=== PATIENT | male | born 1965 | race Caucasian/White ===

== ENCOUNTER 2023-01-17 04:58 | Observation (INO) ==
--- NOTE | 2023-01-03 08:45 | Anesthesiology Consultation ---
Date of Service January 03, 2023 Assessment & Plan (1) Encounter for pre-operative examination: - COVID screening: Per assessment on 01/03: No known COVID-19 positive contacts or current COVID-19 related symptoms. Travel screen negative. Patient has congestion x 2 days. Covid test done at [facility] 01/03/23 came back negative. Patient to contact PAT/surgeon is symptoms not resolved prior to surgery. - Outpatient joint assessment: Pt currently scheduled for inpatient pathway. If surgeon requests review for outpatient joint pathway, patient is an acceptable candidate for outpatient joint program from anesthesia standpoint pending surgeon's office assessment that patient is motivated, has good support and completes Same Day Joint Program preop requirements. Chart Review Chart Review: Acceptable Risk for Surgery and Patient seen in Pre Admission Testing Teaching & Discussion Pre-Anesthesia Teaching/Discussion Notes: Instructed NPO after midnight before surgery,except medications with 15 cc of water. Medication instructions provided according to the [facility] guidelines. History Surgery Operation Date: 01/17/23 08:50 Proposed Procedures p Right Total Hip Arthroplasty - Otilio Alba MD Height/Weight Height: 5 ft 11 in Weight: 103.3 kg Allergies Allergy/AdvReac Type Severity Reaction Status Date / Time Penicillins Allergy Severe severe Verified 01/03/23 08:14 throat swelling Medications Home Medications Medication Instructions Recorded Confirmed Last Taken albuterol sulfate 90 mcg/actuation 2 puff inhalation Q6H PRN 01/03/23 01/03/23 Unknown aerosol inhaler Shortness Of Breath amlodipine 5 mg tablet 5 mg PO QAM 01/03/23 01/03/23 Unknown cyclobenzaprine 10 mg tablet 10 mg PO TID 01/03/23 01/03/23 Unknown diclofenac epolamine 1.3 % 1 patch topical Q12H 01/03/23 01/03/23 Unknown transdermal 12 hour patch duloxetine 60 mg capsule,delayed 60 mg PO DAILY 01/03/23 01/03/23 Unknown release famotidine 20 mg tablet 20 mg PO HS PRN Acid Reflux 01/03/23 01/03/23 Unknown fenofibrate 160 mg tablet 160 mg PO QAM 01/03/23 01/03/23 Unknown gabapentin 600 mg tablet 600 mg PO TID 01/03/23 01/03/23 Unknown hydrocodone 10 mg-acetaminophen 1 tab PO Q6H PRN Pain 01/03/23 01/03/23 Unknown 325 mg tablet icosapent ethyl 1 gram capsule 2 g PO BID 01/03/23 01/03/23 Unknown (Vascepa) linaclotide 145 mcg capsule 145 mcg PO QAM 01/03/23 01/03/23 Unknown (Linzess) meclizine 25 mg tablet 25 mg PO Q8 PRN Dizziness 01/03/23 01/03/23 Unknown metoprolol succinate 50 mg 50 mg PO DAILY 01/03/23 01/03/23 Unknown tablet,extended release 24 hr morphine 60 mg tablet,extended 60 mg PO Q12H 01/03/23 01/03/23 Unknown release (MS Contin) naloxone 0.4 mg/mL injection 0.4 mg intranasal UD PRN overdose 01/03/23 01/03/23 Unknown solution omeprazole 40 mg capsule,delayed 40 mg PO QAM 01/03/23 01/03/23 Unknown release polyethylene glycol 3350 17 gram 17 g PO DAILY 01/03/23 01/03/23 Unknown oral powder packet (Miralax) potassium chloride 10 mEq 10 meq PO QAM 01/03/23 01/03/23 Unknown tablet,extended release prednisone 20 mg tablet 20 mg PO UD 01/03/23 01/03/23 Unknown promethazine 25 mg tablet 25 mg PO Q6H PRN Nausea 01/03/23 01/03/23 Unknown ropinirole 2 mg tablet 4 mg PO HS 01/03/23 01/03/23 Unknown rosuvastatin 10 mg tablet 10 mg PO HS 01/03/23 01/03/23 Unknown testosterone cypionate 200 mg/mL 200 mg subcut UD 01/03/23 01/03/23 Unknown intramuscular kit valacyclovir 1 gram tablet 2,000 mg PO BID PRN Cold Sores 01/03/23 01/03/23 Unknown Past Medical History Medical History Chronic back pain Depression Generalized headaches Hearing deficit Hyperlipidemia Hypertension Left knee DJD Osteoarthritis Exercise / Class Metabolic Activity II 4-5 Yardwork/Stairs/Walk up hill (one FS (no CP, no SOB)) Past Family History Family History Other No family history of adverse response to anesthesia Past Surgical History Surgical History History of anesthesia reaction Awareness with 1990 lumbar surgery History of arthroscopy of right knee x2 History of colonoscopy History of eye surgery "eye socket repair" 2012 History of hernia surgery at 10 months old History of lumbar surgery 1990, 1992 (denies hardware) History of shoulder surgery left History of tooth extraction History of total left hip replacement History of total right knee replacement (TKR) Past Anesthesia History No Family Hx of Anesthesia Complications and Other (Awareness with 1990 with lumbar surgery) History of PONV No Hx of PONV and Hx of Motion Sickness Social History Smoking Status: Never smoker Do You Dip or Chew Tobacco: Yes (Advised none DOS) Hx Alcohol Use: No Hx Substance Use: Yes substance use type: marijuana Review of Systems Patient denies chest pain, shortness of breath, dyspnea on exertion, fever, chills, cough, wheezing, palpitations. Physical Exam Vital Signs VITALS BP 147/75 P 68 TEMP 98.2 SP02 96%RA RESP 16 PHYSICAL Full cervical extension range of motion. Full TMJ range of motion. TMD 4 finger breaths Mallampati Score 2 Dentition: upper partial Lungs: clear throughout to auscultation Cardiac: regular rate and rhythm, distant heart sounds Spine: normal Carotid arteries: negative bruit Extremities: no LE edema Thin gaviria Lab Results Anesthesia Preop Results Results Anesthesia Widget: WBC 7.41 K/ul (4.8-10.8) 01/03/23 Hgb 13.0 g/dl (14.0-18.0) L 01/03/23 Hct 38.4 % (42.0-52.0) L 01/03/23 Plt 288 K/uL (130-400) 01/03/23 Na 139 mmol/L (136-145) 01/03/23 K 3.7 mmol/L (3.5-5.1) 01/03/23 Cl 103 mmol/L (98-107) 01/03/23 CO2 32 mmol/L (21-32) 01/03/23 BUN 14 mg/dl (6-23) 01/03/23 Creat 0.89 mg/dl (0.6-1.4) 01/03/23 Glucose Level 90 mg/dl (70-99(Fasting)) 01/03/23 PT 10.8 Seconds (9.0-12.0) 01/03/23 PTT 28.1 Seconds (21.0-31.0) 01/03/23 INR 1.0 (0.9-1.1) 01/03/23 COVID-19 PCR NEGATIVE (Negative) 01/03/23 Blood Type B Positive 01/03/23 Antibody Screen NEGATIVE 01/03/23 Testing Electrocardiogram Date: 01/03/23 SB with first degree AVB at 59bpm. Otherwise normal ECG. Chest X-Ray Date: 01/03/23 Findings: + NAD
--- NOTE | 2023-01-10 18:21 | History & Physical Report ---
Date of Service January 10, 2023 Assessment & Plan (1) Hip arthritis: 67-year-old gentleman with a history of right knee replacement left hip replacement in the past along with significant narcotic use with advanced right hip arthritis. He is got some moderate left knee DJD. At the right hip is clearly the most severe problem. He failed conservative measures and would like to have his hip replaced. : Proceed with a right total hip replacement. We discussed narcotic use and he really needs to limit this is much as possible. By himself and said he managed this last time. We will plan on keeping him in the office total overnight and then discharged hopefully postop day 1. There is cemented with total hip replacement explained the patient could be not limited to DVT PE infection neurological and vascular bleeding palm pain limb range of motion if this fairly of symptoms incomplete relief of symptoms fracture or dislocation. We will do the best we can to recreate his offset and make his leg lengths equal. As far as DVT prophylaxis we will plan on adding teds SCDs and aspirin twice a day. (2) Left knee DJD: History of Present Illness Chief Complaint: . Right hip pain. Primary Care Provider: Umer Mercado M.D. . Patient is a 57-year-old gentleman from walking referral by Dr. Duarte for treatment of his hip primarily. So long history of gradual increasing right hip pain discomfort localized to the groin area. He has been through extensive conservative management and now presents for surgical treatment. He does have a history of right knee replacement done 15 years ago and a left hip replacement done [address] Humphreys in [place]. Not sure why but he said not happy with something awaiting support. The hip pain has become more disabling. He describes groin pain. Increased activities. He has difficulty putting his shoes and socks on. Limps more today.. He like to have his hip fixed. Of note, he also has some knee arthritis. As long as he takes intermittent prednisone seems to manage that okay. Also discussed some chronic back problems. Allergies Allergy/AdvReac Type Severity Reaction Status Date / Time Penicillins Allergy Severe severe Verified 01/03/23 08:14 throat swelling Home Medications Medication Instructions Recorded Confirmed Type albuterol sulfate 90 mcg/actuation 2 puff inhalation Q6H PRN 01/03/23 01/03/23 History aerosol inhaler Shortness Of Breath amlodipine 5 mg tablet 5 mg PO QAM 01/03/23 01/03/23 History cyclobenzaprine 10 mg tablet 10 mg PO TID 01/03/23 01/03/23 History diclofenac epolamine 1.3 % 1 patch topical Q12H 01/03/23 01/03/23 History transdermal 12 hour patch duloxetine 60 mg capsule,delayed 60 mg PO DAILY 01/03/23 01/03/23 History release famotidine 20 mg tablet 20 mg PO HS PRN Acid Reflux 01/03/23 01/03/23 History fenofibrate 160 mg tablet 160 mg PO QAM 01/03/23 01/03/23 History gabapentin 600 mg tablet 600 mg PO TID 01/03/23 01/03/23 History hydrocodone 10 mg-acetaminophen 1 tab PO Q6H PRN Pain 01/03/23 01/03/23 History 325 mg tablet icosapent ethyl 1 gram capsule 2 g PO BID 01/03/23 01/03/23 History (Vascepa) linaclotide 145 mcg capsule 145 mcg PO QAM 01/03/23 01/03/23 History (Linzess) meclizine 25 mg tablet 25 mg PO Q8 PRN Dizziness 01/03/23 01/03/23 History metoprolol succinate 50 mg 50 mg PO DAILY 01/03/23 01/03/23 History tablet,extended release 24 hr morphine 60 mg tablet,extended 60 mg PO Q12H 01/03/23 01/03/23 History release (MS Contin) naloxone 0.4 mg/mL injection 0.4 mg intranasal UD PRN overdose 01/03/23 01/03/23 History solution omeprazole 40 mg capsule,delayed 40 mg PO QAM 01/03/23 01/03/23 History release polyethylene glycol 3350 17 gram 17 g PO DAILY 01/03/23 01/03/23 History oral powder packet (Miralax) potassium chloride 10 mEq 10 meq PO QAM 01/03/23 01/03/23 History tablet,extended release prednisone 20 mg tablet 20 mg PO UD 01/03/23 01/03/23 History promethazine 25 mg tablet 25 mg PO Q6H PRN Nausea 01/03/23 01/03/23 History ropinirole 2 mg tablet 4 mg PO HS 01/03/23 01/03/23 History rosuvastatin 10 mg tablet 10 mg PO HS 01/03/23 01/03/23 History testosterone cypionate 200 mg/mL 200 mg subcut UD 01/03/23 01/03/23 History intramuscular kit valacyclovir 1 gram tablet 2,000 mg PO BID PRN Cold Sores 01/03/23 01/03/23 History Past Med/Surg History Medical History Chronic back pain Depression Generalized headaches Hearing deficit Hyperlipidemia Hypertension Left knee DJD Osteoarthritis Surgical History History of anesthesia reaction Awareness with 1990 lumbar surgery History of arthroscopy of right knee x2 History of colonoscopy History of eye surgery "eye socket repair" 2012 History of hernia surgery at 10 months old History of lumbar surgery 1990, 1992 (denies hardware) History of shoulder surgery left History of tooth extraction History of total left hip replacement History of total right knee replacement (TKR) Family History Other No family history of adverse response to anesthesia Social History Smoking Status: Never smoker Second Hand Exposure: No; Do You Dip or Chew Tobacco: Yes (Advised none DOS); Hx Alcohol Use: No Hx Substance Use: Yes Last Used Substance: Days (ago) Last Used Substance Other:: used yesterday 01/02/23 Preferred Language: Albanian Communication Ability: Effective 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 Physical Exam . Physical examination right hip reveal patient walks a little bit of a limp. Leg lengths appear pretty equal. Got a lot of stiffness and limitation of hip motion. Internally rotates to about neutral at best. Negative straight leg r aise. Neurologically intact. Constitutional WD/WN, vitals as above ENMT external ear and nose normal, oropharynx normal Neck trachea midline, no thyromegaly Respiratory normal respiratory effort, lungs clear to auscultation Cardiovascular RRR, no murmur, no edema Gastrointestinal (Abdomen) normal bowel sounds, soft, nontender, no hepatosplenomegaly Results & Data Results & Data Laboratory Results . Diagnostic Findings . X-rays of the right hip were reviewed. Shows advanced right hip DJD. Complete loss of superior joint space. Slight cam plate type impingement. Very large medial osteophyte. Significant offset to the femur itself. The left hip replaced looks pretty good position without problems. X-rays of the left knee reveal some moderate medial compartment arthritis but he is got some chondrocalcinosis. The right knee replaced looks to be in good position. Good undersurface patella. PG Care Time/CCT Total # of Minutes Spent Total Time Spent with Patient: Total time spent is greater than 50% in coordination of care (as documented) at patient's floor/unit and/or counseling patient: Coding Level of Care Code None Diagnoses Hip arthritis M16.10 Left knee DJD M17.12
[2023-01-17] MEDS ORDERED: ceFAZolin 2000MG 2,000 MG/15 ML SYR IV SCH (06:00)
[2023-01-17] MEDS ORDERED: TRANEXAMIC ACID 1,000 MG **IV Pre-op IV SCH (06:00)
[2023-01-17] MEDS ORDERED: METOCLOPRAMIDE HCL 10 MG TABLET PO SCH (06:00)
[2023-01-17] MEDS ORDERED: LR 60ML/HR IV SCH (06:00)
[2023-01-17] MEDS ORDERED: ACETAMINOPHEN 500 MG TAB PO SCH (06:00)
[2023-01-17] MEDS ORDERED: BUPIVACAINE LIPOSOME/PF 266 MG, BUPIVACAINE/EPINEPHRINE 50 ML, SODIUM CHLORIDE 0.9% PF ... INFIL SCH (06:00)
[2023-01-17] MEDS ORDERED: dexAMETHasone**PF** 10 MG/ML VIAL IV SCH (06:00)
[2023-01-17] MEDS ORDERED: CeleBREX 200 MG CAP PO SCH (06:00)
[2023-01-17] MEDS ORDERED: Scopolamine 1 MG TDSY TD SCH (06:00)
[2023-01-17] MEDS ORDERED: FAMOTIDINE 20 MG TAB PO SCH (06:00)
[2023-01-17] MEDS ORDERED: LR 500ML BOLUS, THEN 15ML/HR IV SCH (06:00)
[2023-01-17] MEDS ORDERED: BUPIVACAINE 0.5 % 5 MG/1 ML PF 10ML VIAL ONE (06:18)
[2023-01-17] MEDS ORDERED: ONDANSETRON INJ 2 MG/ML 2 ML VIAL ONE (06:38)
[2023-01-17] MEDS ORDERED: PROPOFOL IV EMULSION 10 MG/ML 20 ML VIAL IV ONE ×3 (06:38→06:41)
[2023-01-17] MEDS ORDERED: DEXAMETHASONE SOD INJ 4 MG/ML VIAL ONE (06:38)
[2023-01-17] MEDS ORDERED: MIDAZOLAM HCL 1 MG/ML 2ML VIAL ONE (06:38)
[2023-01-17] MEDS ORDERED: fentaNYL citrate PF 100 MCG/2 ML VIAL ONE (06:38)
[2023-01-17] MEDS ORDERED: LIDOCAINE 2% 2 ML VIAL/AMP(20MG/ML) INFIL ONE (06:38)
[2023-01-17] MEDS ORDERED: MoRPHine SULFATE PF 1 MG/ML 10 ML AMP/VIAL ONE (06:43)
[2023-01-17] MEDS ORDERED: BUPIVACAINE/EPINEPHRINE 0.5% MPF 1:200,000 30 ML VIAL ONE (06:45)
[2023-01-17] MEDS ORDERED: ceFAZolin 2,000 MG/15 ML IV PUSH IV ONE (06:51)
--- NOTE | 2023-01-17 06:58 | History & Physical Bridge Note ---
Date of Service January 17, 2023 History & Physical Bridge Note I have examined the patient, reviewed the History & Physical and in the interval since the performance of the History & Physical I have noted the following changes of clinical significance: no changes noted
[2023-01-17] MEDS ORDERED: Nursing to Pharmacy Communication SCH (07:00)
[2023-01-17] MEDS ORDERED: GLYCOPYRROLATE 0.2 MG/ML VIAL ONE (07:15)
[2023-01-17] MEDS ORDERED: KETAMINE 50 MG/5 ML SYRINGE ONE (07:15)
[2023-01-17] MEDS ORDERED: ePHEDrine sulfate 50 MG/ML SYR ONE (07:18)
[2023-01-17] MEDS ORDERED: PHENYLEPHRINE 100MCG/ML 5ML SYR ONE (07:25)
[2023-01-17] MEDS ORDERED: PHENYLEPHRINE HCL 10 MG/ML VIAL ONE (07:37)
[2023-01-17] MEDS ORDERED: NALOXONE HCL 0.08 MG in SYRINGE 1.8 ML IV PRN (08:04)
[2023-01-17] MEDS ORDERED: ePHEDrine sulfate 50 MG/ML AMP IV PRN (08:04)
[2023-01-17] MEDS ORDERED: diphenhydrAMINE 50 MG/ML VIAL IV PRN (08:04)
[2023-01-17] MEDS ORDERED: NALOXONE HCL 0.4 MG/1 ML VIAL/CARP IV PRN ×2 (08:04→10:07)
[2023-01-17] MEDS ORDERED: LACTATED RINGER'S 500 ML IV PRN (08:04)
[2023-01-17] MEDS ORDERED: NALBUPHINE HCL INJ 10 MG/ML AMP IV PRN (08:04)
[2023-01-17] MEDS ORDERED: MoRPHine SULFATE PF 1 MG/ML 10 ML AMP/VIAL INT SPINAL ONE (08:04)
[2023-01-17] MEDS ORDERED: NALOXONE HCL 1 MG in SODIUM CHLORIDE 0.9% 1000ML 1,000 ML IV PRN (08:04)
[2023-01-17] MEDS ORDERED: NO NARCOTICS OR SEDATIVES SCH (08:15)
[2023-01-17] MEDS ORDERED: DC INTRASPINAL MORPHINE SCH (08:15)
[2023-01-17] MEDS ORDERED: SODIUM CHLORIDE 0.9% 1000ML 1,000 ML IV SCH (08:15)
--- NOTE | 2023-01-17 08:48 | Operative Report ---
PG Post Operative Report Pre & Post Diagnosis Operation Date: 01/17/23 07:00 Pre-Op Diagnosis: Right Hip Degenerative Joint Disease Post-Op Diagnosis: Right Hip Degenerative Joint Disease I identified the patient and participated in the time-out.: Yes Procedure Operation Date: 01/17/23 07:00 Actual Procedures p Right Total Hip Arthroplasty(Right) - Otilio Alba MD Surgeon Otilio Alba MD Patients Transporter Julius Keys PA-C Estimated Blood Loss 100 Findings Consistent with Post-Op Diagnosis Operative findings were advanced right hip DJD. Extensive grade 4 [id number] disease of the femoral head and acetabulum. He had eburnation of most of the femoral head as well as the acetabulum. Pretty significant osteophytes around the femoral neck as well as anterior and inferior acetabulum. Specimens Right femoral head sent for pathology Anesthesia Type Spinal MAC Complications none Disposition Accompanied Patient To Recovery: No Indications Patient is a 57-year-old gentleman with a host of orthopedic issues in the past and orthopedic operations. Over the past several years she developed increased pain discomfort in his right hip. He failed conservative measures. X-rays show advanced hip arthritis. He elected to proceed with total hip arthroplasty. Description of Procedure Operative implants consist of: 1 Biomet G7 size 56 mm acetabular shell. 2. 6.5 cancellous acetabular screws 135 mm in length and 125 mm length. 3. [place] hole eliminator. 4. Highly cross-linked polyethylene liner with 56 mm outer diameter 36 mm diameter and a hansen placed inferior posterior. 5. DePuy Karaya size 11 KLA femoral stem. 6. +8.5/36 mm ceramic articular ball. The patient was taken to the operating, identified, placed on the operating table supine position architectures were properly padded. IV antibiotics arrived by anesthesia team. A spinal anesthetic had been implemented holding area. Patient was then placed in the left lateral decubitus position. Axillary roll was placed. A Stulberg hip positioner was used for positioning. Right hip and leg were then prepped and draped in usual sterile fashion. A posterolateral approach to the right hip was then performed through a curvilinear incision centered over the greater trochanter. Sharp dissection Through subcutaneous tissue down to the IT band gluteal fascia. The IT band gluteal fascia incised longitudinally in line with skin incision. The underlying greater bursa was excised. Piriformis and external rotators along with the hip joint capsule were released from the posterior aspect hip as a single layer. Great care was taken throughout the procedure protect the sciatic nerve at all times. The hip was internally rotated and dislocated. A femoral neck osteotomy cut was made with Final Cut about 17 mm above the lesser trochanter. Femoral head was removed and sent for pathology. The femur was retracted anteriorly. Attention drawn the acetabulum. The acetabular labrum was excised. The medial osteophyte was excised. Sequential reaming the acetabular was then performed again with a size 45 and progressing up to 55. I did ream a little with a 56 reamer and then placed a 56 mm Biomet G7 acetabular shell in about 20 degrees of anteversion and 40 degrees lateral opening. Fixed with two 6.5 cancellous acetabular screws. Some anterior and inferior osteophytes removed. Trial liner was placed. Attention drawn the femur. The proximal femur was entered with a [employer] cutter followed by canal finder. Then broached beginning size 8 and progressed up to 11. Got excellent fit 11. He had a very good cancellous bone envelope. We trialed the hip and the hip was fully stable but still a bit loose and lax with a +5 head. I felt his leg lengths are still a little bit short so we used a +8.5 head. Was fully stable full extension and external rotation and flexion to 90 degrees and internal Tatian to 50+ degrees. I like to place his implants. All trial implants were removed. [place] eliminator was placed. Highly cross- linked polyethylene liner with a hansen placed inferior posterior was placed. I uses head for concerns of this patient's compliance. A DePuy size 11 KLA femoral stem was impacted in position. A +8.5/36 mm ceramic articular ball was placed. Hip was located once again found to be stable. Attention drawn toward closing. Wounds irrigated cosigns pulsatile lavage solution. I did inject locally with 60 cc of half percent Marcaine with epinephrine. The posterior capsule and external rotators were then repaired through drill holes in the posterior trochanter as a single layer with #2 Tycron suture. Then closed in 2 layers with deep layer #1 Vicryl suture in the subcutaneous tissues with 2-0 Dexon suture in a buried interrupted fashion the skin was closed skin lidia. Leg was then cleaned and dried and sterile dressed with Xeroform, 4 x 4's, ABD pad and foam tape was applied. Patient then transferred to the recovery room in stable condition. Patient tolerated procedure well and there were no complications. Julius Keys, my physician post production assistant, was present for the entire procedure. His assistance was essential and required for appropriate patient positioning, prepping and draping, surgical exposure, performing the technical details of the operation, placement the implants, closure of the wound, and placement of the sterile bandage. I attest to the content of the Intraoperative Record and any orders documented therein. Any exceptions are noted below.
--- NOTE | 2023-01-17 09:12 | XRay Report ---
XR hip 1V RT w pelvis HISTORY: 57 years-old Male IN PACU - Post Surgical right hip arthroplasty COMPARISON: 10/11/2022 TECHNIQUE: AP view of the pelvis with crosstable lateral view of the right hip FINDINGS: Unremarkable appearance of the left hip arthroplasty. Right hip arthroplasty demonstrates satisfactor y alignment. Lateral skin lidia with expected postoperative soft tissue swelling and deep tissue ai r. No acute fracture, dislocation or unexpected opaque foreign body. IMPRESSION: Right hip arthroplasty with expected postoperative changes. ACT 112: Negative or not required by law. The above report was generated using voice recognition software. It may contain grammatical, syntax o r spelling errors. Electronically signed by: Naveed Meredith M.D. 01/17/2023 9:11 AM
--- NOTE | 2023-01-17 09:36 | Anesthesiology Progress Note ---
Date of Service January 17, 2023 Anesthesia Post Procedure Vital Signs Vital Signs: Temp Pulse Pulse Resp BP Pulse Ox O2 Del Method 01/17/23 09:30 37.1 C 78 20 136/65 97 Room Air 01/17/23 09:05 82 22 152/77 H 98 Oxymask 01/17/23 08:55 82 19 144/82 H 96 Oxymask 01/17/23 09:15 76 24 140/92 95 Oxymask 01/17/23 08:45 81 19 135/70 100 Oxymask 01/17/23 08:37 36.9 C 64 16 110/59 L 92 Oxymask 01/17/23 05:37 36.9 C 72 20 131/87 95 Room Air O2 Flow Rate 01/17/23 09:30 0 01/17/23 09:05 3 01/17/23 08:55 5 01/17/23 09:15 3 01/17/23 08:45 5 01/17/23 08:37 7 01/17/23 05:37 Pain Intensity Right Hip: Pain Intensity: 0 Notes Mental Status: alert / awake / arousable Patient Amnestic to Procedure: Yes Nausea / Vomiting: adequately controlled Pain: adequately controlled Airway Patency, RR, SpO2: stable & adequate BP & HR: stable & adequate Hydration State: stable & adequate Neuraxial Anesthesia: was administered and sensory block is resolving Anesthetic Complications: no major complications apparent
[2023-01-17] MEDS ORDERED: diphenhydrAMINE Capsule 25 MG CAP PO PRN (10:07)
[2023-01-17] MEDS ORDERED: METOCLOPRAMIDE HCL INJ 5 MG/ML 2 ML VIAL IV PRN (10:07)
[2023-01-17] MEDS ORDERED: HYDROmorphone INJ 0.5 MG/0.5 ML SYR IV PRN (10:07)
[2023-01-17] MEDS ORDERED: MAGNESIUM HYDROXIDE SUSP 30 ML UDC PO PRN (10:07)
[2023-01-17] MEDS ORDERED: TAMSULOSIN HCL 0.4 MG CAP PO PRN (10:07)
[2023-01-17] MEDS ORDERED: TESTOSTERONE CYPIONATE 200 MG/ML SQ SCH (10:07)
[2023-01-17] MEDS ORDERED: ONDANSETRON INJ 2 MG/ML 2 ML VIAL IV PRN (10:07)
[2023-01-17] MEDS ORDERED: MECLIZINE HCL 25 MG TAB PO PRN (10:07)
[2023-01-17] MEDS ORDERED: ALBUTEROL HFA 8 GM INHALER INH PRN (10:07)
[2023-01-17] MEDS ORDERED: PROMETHAZINE HCL 25 MG TAB PO PRN (10:07)
[2023-01-17] MEDS ORDERED: bisacodyL 10 MG SUPP PR PRN (10:07)
[2023-01-17] MEDS ORDERED: FAMOTIDINE 20 MG TAB PO PRN (10:07)
[2023-01-17] MEDS ORDERED: ALUMINUM/MAGNESIUM SUSP 30 ML UDC PO PRN (10:07)
[2023-01-17] MEDS: SODIUM CHLORIDE 0.9% 1000ML 1,000 ML IV SCH ×2 (10:27→20:17)
[2023-01-17] MEDS: MoRPHine SULFATE CR 60 MG TABCR PO SCH ×2 (11:07→22:35)
[2023-01-17] MEDS: SENNA 8.6 MG TAB PO SCH ×2 (11:07→20:08)
[2023-01-17] MEDS: MULTIVITAMIN TAB PO SCH (11:08)
[2023-01-17] MEDS: DOCUSATE SODIUM 100 MG CAP PO SCH ×2 (11:08→20:06)
[2023-01-17] MEDS: POLYETHYLENE (MIRALAX) 17 GM PACK PO SCH (11:09)
[2023-01-17] MEDS: POTASSIUM CHLORIDE 10 MEQ TABCR PO SCH (11:09)
[2023-01-17] MEDS: KETOROLAC 30 MG/ML VIAL IV SCH ×2 (11:09→17:45)
[2023-01-17] MEDS: PANTOprazole 40 MG TAB PO SCH (11:09)
[2023-01-17] MEDS: ASPIRIN 81 MG ECTAB PO SCH ×2 (11:09→20:05)
[2023-01-17] MEDS: METOPROLOL SUCC 50MG EXT REL TAB PO SCH (11:10)
[2023-01-17] MEDS: LINACLOTIDE 145 MCG CAPSULE PO SCH (11:10)
[2023-01-17] MEDS: DULoxetine HCL 60 MG CAP PO SCH (11:14)
[2023-01-17] MEDS: amLODIPine BESYLATE 5 MG TAB PO SCH (11:16)
[2023-01-17] MEDS: GABAPENTIN 600 MG TAB PO SCH ×2 (13:37→20:06)
[2023-01-17] MEDS: ACETAMINOPHEN 500 MG TAB PO SCH ×2 (13:38→22:34)
[2023-01-17] MEDS: CYCLOBENZAPRINE HCL 10 MG TAB PO SCH ×2 (13:38→20:05)
[2023-01-17] MEDS ORDERED: TRANEXAMIC ACID / 0.7% NACL 1,000 MG/100 ML BAG IV SCH (15:00)
[2023-01-17] MEDS: predniSONE 20 MG TAB PO SCH ×2 (15:58→20:07)
[2023-01-17] MEDS: ceFAZolin 2000MG 2,000 MG/15 ML SYR IV SCH ×2 (15:59→22:36)
[2023-01-17] MEDS: Scopolamine CHECK PATCH PLACEMENT SCH (15:59)
[2023-01-17] MEDS: ASCORBIC ACID 500 MG TAB PO SCH (16:00)
[2023-01-17] MEDS: OMEGA-3 (PURIFIED FISH OIL) 1 GM CAP PO SCH (20:06)
[2023-01-17] MEDS: oxyCODONE HCL IR 5 MG TAB (IMMEDIATE RELEASE) PO PRN (20:09)
[2023-01-17] MEDS ORDERED: rOPINIRole HCL 2 MG TABLET PO SCH (21:00)
[2023-01-17] MEDS ORDERED: SENNA 8.6 MG TAB PO SCH (21:00)
[2023-01-17] MEDS ORDERED: ROSUVASTATIN CALCIUM 10 MG TAB PO SCH (21:00)
[2023-01-18] MEDS: KETOROLAC 30 MG/ML VIAL IV SCH ×2 (00:04→06:08)
[2023-01-18] MEDS: Scopolamine CHECK PATCH PLACEMENT SCH ×2 (00:04→08:12)
[2023-01-18] MEDS: oxyCODONE HCL IR 5 MG TAB (IMMEDIATE RELEASE) PO PRN ×2 (00:10→06:00)
[2023-01-18 06:04] LABS: Basophils # (auto) 0.01 K/uL (0-0.2); Basophils % (auto) 0.1 %; Hematocrit (blood only) 33.5 % (42.0-52.0); Hemoglobin 11.3 g/dl (14.0-18.0); Immature Granulocytes # (auto) 0.08 K/uL (0.01-0.20); Immature Granulocytes % (auto) 0.5 %; Lymphocytes # (auto) 0.92 K/uL (1.2-3.4); Lymphocytes % (auto) 6.2 %; Mean Corpuscular Hemoglobin 28.4 pg (25.0-34.0); Mean Corpuscular Hgb Conc 33.7 g/dL (32.0-36.0); Mean Corpuscular Volume 84.2 fL (80.0-100.0); Mean Platelet Volume 10.7 fL (9.4-12.4); Monocytes # (auto) 0.94 K/uL (0.11-0.59); Monocytes % (auto) 6.3 %; Neutrophils # (auto) 12.99 K/uL (1.40-6.50); Neutrophils % (auto) 86.9 %; Platelet Count 235 K/uL (130-400); RDW Coefficient of Variation 13.2 % (11.5-14.5); Red Blood Count 3.98 M/uL (4.70-6.10); White Blood Count 14.94 K/ul (4.8-10.8)
[2023-01-18] MEDS: ACETAMINOPHEN 500 MG TAB PO SCH (06:05)
[2023-01-18 06:29] LABS: BUN Creatinine Ratio 19.3 (10-20); Creatinine Clr Calc Pharmacy 112.8 ml/min; Est GFR (African American) 111.3 ml/min; Potassium 4.3 mmol/L (3.5-5.1)
--- NOTE | 2023-01-18 07:54 | Orthopedic Progress Note ---
Date of Service January 18, 2023 Assessment & Plan (1) Status post right hip replacement: 57-year-old gentleman postop day 1 from right hip replacement doing pretty well. Pain is controlled. Hip is located. He is neurologically intact. Plan: 1. DVT prophylaxis glucide teds SCDs, aspirin twice a day. 2. PT OT. Weight-bear as tolerated. Right total hip precautions. Weight-bear as tolerated. 3. Pain control doing okay with current pain regimen. 4. Disposition. Plan to discharge to home with self-care evaluated today. He is refusing home health. Subjective . 57-year-old gentleman postop day 1 from a right total hip placement. He is doing pretty well. He does have history of chronic pain and says it is nothing real new today. No chest pain or shortness of breath. He is hoping to go home. Review of Systems All systems reviewed & are unremarkable except as noted in HPI & below. Physical Exam . Physical exam shows a pleasant middle-age male. He is lying in bed looks comfortable this morning. Examination of the right hip reveals the leg to be well aligned. Dressing is clean dry and intact. Thigh is soft and supple. He is neurologically intact. Respiratory normal respiratory effort, lungs clear to auscultation Cardiovascular RRR, no murmur, no edema Gastrointestinal (Abdomen) normal bowel sounds, soft, nontender, no hepatosplenomegaly Results & Data Results & Data Laboratory Results . Hemoglobin is 11.3. Hematocrit 33.5. Electrolytes are stable Diagnostic Findings . PG Care Time/CCT Total # of Minutes Spent Total Time Spent with Patient: Total time spent is greater than 50% in coordination of care (as documented) at patient's floor/unit and/or counseling patient: Coding Level of Care Code 71654 Post Operative Follow-Up Diagnoses Status post right hip replacement Z96.641
[2023-01-18] MEDS ORDERED: dexAMETHasone 10 MG in SYRINGE 0 ML IV SCH (08:00)
[2023-01-18] MEDS: POTASSIUM CHLORIDE 10 MEQ TABCR PO SCH (08:04)
[2023-01-18] MEDS: PANTOprazole 40 MG TAB PO SCH (08:04)
[2023-01-18] MEDS: MULTIVITAMIN TAB PO SCH (08:04)
[2023-01-18] MEDS: METOPROLOL SUCC 50MG EXT REL TAB PO SCH (08:07)
[2023-01-18] MEDS: LINACLOTIDE 145 MCG CAPSULE PO SCH (08:07)
[2023-01-18] MEDS: amLODIPine BESYLATE 5 MG TAB PO SCH (08:07)
[2023-01-18] MEDS: SENNA 8.6 MG TAB PO SCH (08:08)
[2023-01-18] MEDS: DULoxetine HCL 60 MG CAP PO SCH (08:08)
[2023-01-18] MEDS: ASCORBIC ACID 500 MG TAB PO SCH (08:09)
[2023-01-18] MEDS: OMEGA-3 (PURIFIED FISH OIL) 1 GM CAP PO SCH (08:09)
[2023-01-18] MEDS: DOCUSATE SODIUM 100 MG CAP PO SCH (08:09)
[2023-01-18] MEDS: ASPIRIN 81 MG ECTAB PO SCH (08:10)
[2023-01-18] MEDS: CYCLOBENZAPRINE HCL 10 MG TAB PO SCH (08:10)
[2023-01-18] MEDS: GABAPENTIN 600 MG TAB PO SCH (08:10)
[2023-01-18] MEDS: POLYETHYLENE (MIRALAX) 17 GM PACK PO SCH (08:11)
[2023-01-18] MEDS: predniSONE 20 MG TAB PO SCH (08:11)
[2023-01-18] MEDS: MoRPHine SULFATE CR 60 MG TABCR PO SCH (10:41)
--- NOTE | 2023-01-22 15:42 | Discharge Summary ---
Date of Service January 22, 2023 Discharge Data Procedures Performed Operation Date: 01/17/23 07:00 Actual Procedures p Right Total Hip Arthroplasty(Right) - Otilio Alba MD Hospital Course (1) Status post right hip replacement: This is a 58 year old patient admitted on 01/17/23 and underwent total hip arthroplasty. He tolerated the procedure well and there were no complications. Transferred to the PACU post op and later to the orthopedic floor for further care. He was given ancef for antibiotic prophylaxis. He was also given ABHISHEK stockings, SCDs, and aspirin for DVT prophylaxis. Hemoglobin, hematocrit, and vital signs were monitored during his hospital stay and remained stable. Did not require any blood transfusions. There were no complications during his hospital stay. By post op day #1 the patient was tolerating a regular diet, pain was reasonably controlled with oral pain medicine, and he was participating in physical therapy. On post op day #1 the patient was discharged home. He was given printed discharge instructions including prescriptions for aspirin, zofran, senokot, and ketorolac. Continue hip precautions. Continue physical therapy, weight bearing as tolerated. Continue ABHISHEK stockings. Follow up approximately 2 weeks post op or sooner if there are problems or concerns. Coding Level of Care Code None Diagnoses Status post right hip replacement Z96.641
== END 2023-01-18 11:15 | disposition home or self-care (01) ==
LOC: ASU 04:58 → 3E 04:58

== ENCOUNTER 2023-05-30 08:42 | Observation (INO) ==
--- NOTE | 2023-05-24 09:44 | History & Physical Report ---
Date of Service May 24, 2023 Assessment & Plan (1) Left knee DJD: 58-year-old gentleman with multiple more orthopedic issues and multiple joint replacements with advanced left knee tricompartment DJD, chondrocalcinosis, and a large associated medial ganglion. He has failed conservative treatment. They like to have his knee fixed. Happy with his other joints. Plan: We discussed treatment options. That we can proceed with a left knee replacement. The risks Mente of this procedure explained the patient clued but not limited to DVT PE infection neurological and vascular bleeding palm pain limb range of motion sepsis fairly with symptoms incomplete relief of symptoms etc. Patient understands and desires to proceed. Informed consent was obtained. He is fully aware at his age this may need to be revised in the future. As far as the pain medicines he is manage this on his own with his physicians help. We may need a pain management consult in the hospital due to his chronic narcotic use. He is planned to be discharged to home using outpatient therapy. Follow back with me 2 weeks postop. Use aspirin for DVT prophylaxis. (2) Status post right hip replacement: (3) Status post right knee replacement: (4) Status post left hip replacement: History of Present Illness Chief Complaint: . Persistent left knee pain discomfort and swelling. Primary Care Provider: Umer Mercado M.D. . Patient is a 58-year-old gentleman from [facility] who presents now for surgical treatment of his left knee. Is got a long history of orthopedic problems in the past and has had his right knee replaced done [facility] 15 years ago and both hips replaced most recently the right hip done by myself in early January. He had a several year history of progressive left knee pain and discomfort. He gets a swelling with a large ganglion. We have aspirated injected this on multiple occasions and it continues to recur. It is become more disabling. He would like to have his left knee fixed. He has been happy with all his other joint replacements. He has been on chronic narcotics for multiple pain issues. He apparently manages this pretty well with his other physicians assistants. Allergies Allergy/AdvReac Type Severity Reaction Status Date / Time Penicillins Allergy Severe severe Verified 01/17/23 05:29 throat swelling Home Medications Medication Instructions Recorded Confirmed Type albuterol sulfate 90 mcg/actuation 2 puff inhalation Q6H PRN 01/03/23 01/17/23 History aerosol inhaler Shortness Of Breath amlodipine 5 mg tablet 5 mg PO QAM 01/03/23 01/17/23 History cyclobenzaprine 10 mg tablet 10 mg PO TID 01/03/23 01/17/23 History diclofenac epolamine 1.3 % 1 patch topical Q12H 01/03/23 01/17/23 History transdermal 12 hour patch duloxetine 60 mg capsule,delayed 60 mg PO DAILY 01/03/23 01/17/23 History release famotidine 20 mg tablet 20 mg PO HS PRN Acid Reflux 01/03/23 01/17/23 History fenofibrate 160 mg tablet 160 mg PO QAM 01/03/23 01/17/23 History gabapentin 600 mg tablet 600 mg PO TID 01/03/23 01/17/23 History hydrocodone 10 mg-acetaminophen 1 tab PO Q6H PRN Pain 01/03/23 01/17/23 History 325 mg tablet icosapent ethyl 1 gram capsule 2 g PO BID 01/03/23 01/17/23 History (Vascepa) linaclotide 145 mcg capsule 145 mcg PO QAM 01/03/23 01/17/23 History (Linzess) meclizine 25 mg tablet 25 mg PO Q8 PRN Dizziness 01/03/23 01/17/23 History metoprolol succinate 50 mg 50 mg PO DAILY 01/03/23 01/17/23 History tablet,extended release 24 hr morphine 60 mg tablet,extended 60 mg PO Q12H 01/03/23 01/17/23 History release (MS Contin) naloxone 0.4 mg/mL injection 0.4 mg intranasal UD PRN overdose 01/03/23 01/17/23 History solution omeprazole 40 mg capsule,delayed 40 mg PO QAM 01/03/23 01/17/23 History release polyethylene glycol 3350 17 gram 17 g PO DAILY 01/03/23 01/17/23 History oral powder packet (Miralax) potassium chloride 10 mEq 10 meq PO QAM 01/03/23 01/17/23 History tablet,extended release prednisone 20 mg tablet 20 mg PO UD 01/03/23 01/17/23 History promethazine 25 mg tablet 25 mg PO Q6H PRN Nausea 01/03/23 01/17/23 History ropinirole 2 mg tablet 4 mg PO HS 01/03/23 01/17/23 History rosuvastatin 10 mg tablet 10 mg PO HS 01/03/23 01/17/23 History testosterone cypionate 200 mg/mL 200 mg subcut UD 01/03/23 01/03/23 History intramuscular kit valacyclovir 1 gram tablet 2,000 mg PO BID PRN Cold Sores 01/03/23 01/03/23 History aspirin 81 mg tablet,delayed 81 mg PO BID 45 days #90 tabs 01/15/23 01/17/23 Rx release (Kiesha Low Dose Aspirin) ketorolac 10 mg tablet 10 mg PO Q6 pain 5 days #20 tabs 01/15/23 01/17/23 Rx ondansetron 4 mg disintegrating 4 mg PO Q8 PRN nausea #20 tabs 01/15/23 01/17/23 Rx tablet sennosides 8.6 mg tablet (Senokot) 8.6 mg PO BID prevent constipation 01/15/23 Rx 14 days #28 tabs Past Med/Surg History Medical History Osteoarthritis Chronic back pain Depression Hearing deficit Hyperlipidemia Hypertension Generalized headaches Encounter for pre-operative examination Left knee DJD Hip arthritis Surgical History (Updated 05/24/23 @ 09:42 by Otilio Alba MD) Status post left hip replacement Status post right knee replacement Status post right hip replacement History of anesthesia reaction Awareness with 1990 lumbar surgery History of lumbar surgery 1992 (denies hardware) History of shoulder surgery left History of arthroscopy of right knee x2 History of total right knee replacement (TKR) History of colonoscopy History of hernia surgery at 10 months old History of tooth extraction History of eye surgery "eye socket repair" 2013 History of total left hip replacement Family History Other No family history of adverse response to anesthesia Social History Smoking Status: Never smoker Second Hand Exposure: No; Do You Dip or Chew Tobacco: Yes (Advised none DOS); Hx Alcohol Use: No Hx Substance Use: Yes Last Used Substance: Days (ago) Last Used Substance Other:: used yesterday 01/02/23 Preferred Language: Welsh Communication Ability: Effective Emergency Room Tech Required: No Beliefs That Will Affect Care: None Current Living Situation: Alone Feels Safe at Home: Yes Assistive Devices: Walker Review of Systems All systems reviewed & are unremarkable except as noted in HPI & below. Physical Exam . Physical examination of the left knee reveals a varus alignment to his knee. Got a large medial ganglion slight fluid collection over the medial side of his knee. Is got a small knee effusion. His range of motion about 5 degrees short full extension to 120 degrees of flexion. There is no instability. No particular pain with hip motion. He is neurologically intact. Constitutional WD/WN, vitals as above Neck trachea midline, no thyromegaly Respiratory normal respiratory effort, lungs clear to auscultation Cardiovascular RRR, no murmur, no edema Results & Data Results & Data Laboratory Results . Diagnostic Findings . X-rays of the left knee reviewed. He is got near complete loss of his medial joint space. Got chondrocalcinosis medially and laterally. The right knee replacement looks to be in good position without problems. PG Care Time/CCT Total # of Minutes Spent Total Time Spent with Patient: Total time spent is greater than 50% in coordination of care (as documented) at patient's floor/unit and/or counseling patient: Coding Level of Care Code None Diagnoses Left knee DJD M17.12 Status post right hip replacement Z96.641 Status post right knee replacement Z96.651 Status post left hip replacement Z96.642
--- NOTE | 2023-05-26 09:51 | Anesthesiology Consultation ---
Date of Service May 26, 2023 Assessment & Plan (1) Encounter for pre-operative examination: Chart Review Chart Review: Acceptable Risk for Surgery and Patient NOT seen in Pre Admission Testing - Pt NOT an OPJ candidate due surgeon's H&P mentioning patient may need pain management consult post op due to chronic narcotic use. Currently 23 hour obs -Infectious Disease screening: Per PAT nursing assessment on 05/26/23. No known infectious disease contacts in past 10 days or current infectious disease symptoms. No recent travel outside the country. Right SARA 01/17/23= Done under SAB at L3-4. History Surgery Operation Date: 05/30/23 10:40 Proposed Procedures p Left Total Knee Arthroplasty - Otilio Alba MD Height/Weight Height: 5 ft 11 in Weight: 102.058 kg Allergies Allergy/AdvReac Type Severity Reaction Status Date / Time Penicillins Allergy Severe severe Verified 05/26/23 08:11 throat swelling Medications Home Medications Medication Instructions Recorded Confirmed Last Taken albuterol sulfate 90 mcg/actuation 2 puff inhalation Q6H PRN 01/03/23 05/26/23 01/03/23 aerosol inhaler Shortness Of Breath amlodipine 5 mg tablet 5 mg PO QAM 01/03/23 05/26/23 01/16/23 08:00 cyclobenzaprine 10 mg tablet 10 mg PO TID 01/03/23 05/26/23 01/16/23 08:00 duloxetine 60 mg capsule,delayed 60 mg PO QAM 01/03/23 05/26/23 01/16/23 08:00 release famotidine 20 mg tablet 20 mg PO HS PRN Acid Reflux 01/03/23 05/26/23 01/15/23 fenofibrate 160 mg tablet 160 mg PO QAM 01/03/23 05/26/23 01/16/23 08:00 gabapentin 600 mg tablet 600 mg PO TID 01/03/23 05/26/23 01/16/23 08:00 hydrocodone 10 mg-acetaminophen 1 tab PO Q6H PRN Pain 01/03/23 05/26/23 01/17/23 03:00 325 mg tablet icosapent ethyl 1 gram capsule 2 g PO BID 01/03/23 05/26/23 01/16/23 08:00 (Vascepa) linaclotide 145 mcg capsule 145 mcg PO QAM PRN Constipation 01/03/23 05/26/23 01/16/23 08:00 (Linzess) meclizine 25 mg tablet 25 mg PO Q8 PRN Dizziness 01/03/23 05/26/23 Unknown metoprolol succinate 50 mg 50 mg PO HS 01/03/23 05/26/23 01/16/23 08:00 tablet,extended release 24 hr morphine 60 mg tablet,extended 60 mg PO Q12H 01/03/23 05/26/23 01/17/23 03:00 release (MS Contin) naloxone 0.4 mg/mL injection 0.4 mg intranasal UD PRN overdose 01/03/23 05/26/23 Unknown solution omeprazole 40 mg capsule,delayed 40 mg PO QAM 01/03/23 05/26/23 01/16/23 08:00 release polyethylene glycol 3350 17 gram 17 g PO DAILY PRN Constipation 01/03/23 05/26/23 Unknown oral powder packet (Miralax) potassium chloride 10 mEq 10 meq PO QAM 01/03/23 05/26/23 01/16/23 08:00 tablet,extended release promethazine 25 mg tablet 25 mg PO Q6H PRN Nausea 01/03/23 05/26/23 Unknown ropinirole 2 mg tablet 4 mg PO HS 01/03/23 05/26/23 01/15/23 21:00 rosuvastatin 10 mg tablet 10 mg PO HS 01/03/23 05/26/23 01/15/23 21:00 testosterone cypionate 200 mg/mL 200 mg subcut UD 01/03/23 05/26/23 Unknown intramuscular kit valacyclovir 1 gram tablet 2,000 mg PO BID PRN Cold Sores 01/03/23 05/26/23 Unknown calcium carbonate 600 mg-vitamin 1 tab PO BID 05/26/23 05/26/23 Unknown D3 5 mcg (200 unit) tablet Past Medical History Medical History Heartburn Peripheral neuropathy Degenerative disc disease Anxiety Osteoarthritis Chronic back pain pain medication managed by PCP. Depression Hearing deficit Hyperlipidemia Hypertension Generalized headaches Past Family History Family History Other No family history of adverse response to anesthesia Past Surgical History Surgical History S/P epidural steroid injection Status post left hip replacement Status post right knee replacement Status post right hip replacement History of anesthesia reaction Awareness with 1990 lumbar surgery History of lumbar surgery 1990, 1992 (denies hardware) History of shoulder surgery Left shoulder replacement History of arthroscopy of right knee x2 History of colonoscopy History of hernia surgery at 10 months old History of tooth extraction History of eye surgery "eye socket repair" 2012 Social History Smoking Status: Never smoker tobacco type: smokeless tobacco Do You Dip or Chew Tobacco: Yes (Advised none DOS by PAT nursing) Hx Alcohol Use: No Hx Substance Use: Yes substance use type: marijuana Last Used Substance: Days (ago) Last Used Substance Other:: 05/24/23 Testing Laboratory Results 05/12/23= WBC: 5.3 H/H: 15.2/45.8 PLATELETS: 325 SODIUM: 136 POTASSIUM: 3.5 CHLORIDE: 101 CO2: 30 BUN: 17 CREATININE: 0.89 GLUCOSE: 119 PT: 13.4 PTT: 28.5 INR: 1.1 Electrocardiogram Date: 01/03/23 SB with first degree AVB at 59bpm. Otherwise normal ECG. Chest X-Ray Date: 01/03/23 Findings: + NAD
[~2023-05-30 08:42] MED LIST: ACETAMINOPHEN 500 MG TAB PO SCH; BUPIVACAINE 0.25% PF 30 ML VIAL ONE; BUPIVACAINE 0.5 % 5 MG/1 ML PF 10ML VIAL ONE; BUPIVACAINE LIPOSOME/PF 266 MG, BUPIVACAINE/EPINEPHRINE 50 ML, SODIUM CHLORIDE 0.9% PF ... INFIL SCH; CeleBREX 200 MG CAP PO SCH; DEXAMETHASONE SOD INJ 4 MG/ML VIAL ONE; EPINEPHrine INJ 1 MG/ML AMP ONE; FAMOTIDINE 20 MG TAB PO SCH; LR 500ML BOLUS, THEN 15ML/HR IV SCH; LR 60ML/HR IV SCH; METOCLOPRAMIDE HCL 10 MG TABLET PO SCH; Scopolamine 1 MG TDSY TD SCH; TRANEXAMIC ACID 1,000 MG **IV Intra-op IV SCH; ceFAZolin 2000MG 2,000 MG/15 ML SYR IV SCH; dexAMETHasone**PF** 10 MG/ML VIAL IV SCH
--- NOTE | 2023-05-30 09:36 | History & Physical Bridge Note ---
Date of Service May 30, 2023 History & Physical Bridge Note I have examined the patient, reviewed the History & Physical and in the interval since the performance of the History & Physical I have noted the following changes of clinical significance: no changes noted
[2023-05-30] MEDS ORDERED: fentaNYL citrate PF 100 MCG/2 ML VIAL ONE (10:12)
[2023-05-30] MEDS ORDERED: MIDAZOLAM HCL 1 MG/ML 2ML VIAL ONE ×2 (10:12→12:05)
[2023-05-30] MEDS ORDERED: ePHEDrine sulfate 50 MG/ML AMP IV PRN (10:50)
[2023-05-30] MEDS ORDERED: ONDANSETRON INJ 2 MG/ML 2 ML VIAL IV PRN ×2 (10:50→16:12)
[2023-05-30] MEDS ORDERED: ATROPINE SULFATE 0.1 MG/ML 10ML SYR IV PRN (10:50)
[2023-05-30] MEDS ORDERED: BUPIVACAINE/EPINEPHRINE 0.25% 1:200,000 30 ML VIAL ONE (11:41)
[2023-05-30] MEDS ORDERED: SODIUM CHLORIDE 0.9% PF 50 ML VIAL ONE (11:42)
[2023-05-30] MEDS ORDERED: BUPIVACAINE LIPOSOME 1.3% 266 MG/20 ML VIAL ONE (11:42)
[2023-05-30] MEDS ORDERED: PROPOFOL IV EMULSION 10 MG/ML 20 ML VIAL IV ONE (12:06)
[2023-05-30] MEDS ORDERED: ONDANSETRON INJ 2 MG/ML 2 ML VIAL ONE (12:06)
[2023-05-30] MEDS ORDERED: KETOROLAC 30 MG/ML VIAL ONE (12:06)
[2023-05-30] MEDS ORDERED: PHENYLEPHRINE 100MCG/ML 10ML SYR IV ONE (12:22)
[2023-05-30] MEDS ORDERED: ePHEDrine sulfate 50 MG/ML AMP ONE (12:22)
--- NOTE | 2023-05-30 13:59 | Operative Report ---
PG Post Operative Report Pre & Post Diagnosis Operation Date: 05/30/23 10:40 Pre-Op Diagnosis: Left Knee Advanced Degenerative Joint Disease with a large medial meniscal cyst ganglion Post-Op Diagnosis: Left Knee Advanced Degenerative Joint Disease with large medial meniscus cyst ganglion I identified the patient and participated in the time-out.: Yes Procedure Operation Date: 05/30/23 10:40 Actual Procedures p Left Total Knee Arthroplasty(Left) Excision left medial knee ganglion- Otilio Alba MD Surgeon Otilio Alba MD Medication Specialist Julius Keys PA-C Estimated Blood Loss 50 Findings Consistent with Post-Op Diagnosis Operative findings revealed advanced left knee medial compartment arthritis with full-thickness cartilage loss. Not much in way of eburnation. Moderate-sized joint effusion. He had a large medial sided ganglion anterior and around the MCL. This ganglion was filled with very thick gelatinous material. Specimens None Anesthesia Type Spinal MAC Complications none Disposition Accompanied Patient To Recovery: No Indications Patient is a 58-year-old gentleman said a long history of orthopedic problems and issues over the years. He had both hips replaced in his right knee replaced in the past. Over the past several years she developed her persistent progressive left knee pain discomfort and a large ganglion over the medial side of his knee. It has been treated conservatively with medicines and injections. At this become less successful over time. He elected proceed with surgical management. Description of Procedure Operative implants consist of: 1 Biomet Vanguard size 70 left posterior stabilized femoral component. 2. Biomet size 75 tibial tray. 3. 10 mm post stabilized polyethylene insert. 4. 31 x 8 all poly patella. The patient was taken the operating, identified, placed on the operating table in the supine position. All contact areas were appropriately padded. IV antibiotics are by anesthesia team. A spinal anesthetic and adductor canal block had been divided in the holding area. Left thigh turn was then placed. Left lower extremity was then prepped and draped in usual sterile fashion. The left leg was elevated exsanguinated with use of an Esmarch and the tourniquet was placed at 300 mmHg. An anterior approach the left knee was then performed to longitudinal incision centered over the patella. Sharp dissection was carried through subcutaneous tissue down the extensor mechanism. A medial parapatellar arthrotomy incision was made. Some slight subperiosteal dissection was carried out medially. The fat pad was resected from Neath patella tendon. The lateral patellofemoral ligament was released. Patella subluxated laterally and the knee was flexed. The osteophytes were taken off distal femur. ACL PCL then released from distal femur and the tibia subluxated anteriorly. External tibial alignment jig was then placed the interface the tibia and adjusted 14 mm medially. Proximal tibial cut was made remove about 2 to 3 mm of bone from the medial side. He did not have much bone destruction on the side. The tibia was then sized to a size 75. Attention drawn the femur. The distal femur down to the sharp drop with intramedullary canal was suction. A left 6 degree valgus cutting guide was placed. Distal femoral cutting block was pinned in place. Distal femoral cut was made to take an additional 3 mm of bone off the distal femur. The femur was then sized to a size 70. The AP cutting block was pinned parallel to the epicondylar axis which was 4 degrees of external rotation. Anterior cut, anterior chamfer, posterior cut, posterior chamfer cuts were made. The box cutting guide was placed in a just slight lateral and the box cut was made. The knee was flexed. The remnants of the medial and lateral menisci were excised. The osteophytes were taken off the posterior aspect the femur. A trial femoral component was placed. The tibial tray was pinned Stacy external rotation and the drill and stem punch used to create defect in proximal tibia for the tibial tray. Knee was then trialed and 10 mm insert fit most appropriately. Attention drawn the patella. The patella was cleaned of all soft tissue. Patella thickness measured 23 mm in thickness was cut down to 14. Was sized to a size 31 patella. The lug holes were drilled for 31 patella. Lateral osteophytes removed. Patella button was placed. Knee was taken through range of motion and the patella tracked nicely with no thumbs test. Attention drawn of the ganglion. And thought that this ganglion would decompress once we took the medial meniscus out but it was still a present. Therefore we made an incision and in the medial soft tissue structures and entered the ganglion. Was filled with a very thick gelatinous material. It was not liquidy at all. I used a rongeur and a curette to curette the cystic area. I did use a cautery to try and ellipse as much of the capsule as possible. The remainder I tried to scar up with the cautery to get it to heal down. Attention drawn to placing the permanent components. Nupathe all trial components were removed. Bone plug was placed in the distal femur limit blood loss. Double batch Palacos G cement was mixed. A Biomet Vanguard size 70 left posterior stabilized femoral component, a size 75 tibial tray, 10 mm pro stabilized polyethylene insert, and a 31 x 8 all poly patella then cemented in place. Knee was brought out into full extension till cement hardened. Final cement check was then performed. Pericapsular tissues were injected with total of 100 cc of combination of 20 cc of Exparel, 30 cc normal saline, 50 cc core percent Marcaine with epinephrine. Patient did receive 1 g tranexamic acid. The tourniquet was then let down for final tourniquet time 60 minutes. Hemostasis assured use electrocautery. Extensor Metros then closed with combination 1 PDS suture #1 Vicryl suture in a [id number] fashion. The extensor Meclomen checked found to be intact through the subcutaneous tissues then closed with 2 Dexon suture in a buried interrupted fashion skin was closed with skin lidia. Leg was then cleaned and dried and sterile dressing was Xeroform, 4 fours, sterile cast padding, Ariel bandage were applied. Patient then transferred to the recovery room in stable condition. Patient tolerated procedure well and there were no complications. Julius Keys, my physician librarian assistant, was present for the entire procedure. His assistance was essential and required for appropriate patient positioning, pr epping and draping, surgical exposure, performing the technical details of the operation, placement the implants, closure of the wound, and placement of the sterile bandage. I attest to the content of the Intraoperative Record and any orders documented therein. Any exceptions are noted below.
--- NOTE | 2023-05-30 14:18 | Anesthesiology Progress Note ---
Date of Service May 30, 2023 Anesthesia Post Procedure Vital Signs Vital Signs: Temp Pulse Resp BP Pulse Ox O2 Del Method 05/30/23 09:55 36.9 C 65 18 131/75 94 Room Air Pain Intensity Left Knee: Pain Intensity: 8 Transfer of Care Handoff Completed per policy Notes Mental Status: alert / awake / arousable Patient Amnestic to Procedure: Yes Nausea / Vomiting: adequately controlled Pain: adequately controlled Airway Patency, RR, SpO2: stable & adequate BP & HR: stable & adequate Hydration State: stable & adequate Neuraxial Anesthesia: was administered and sensory block is resolving Anesthetic Complications: no major complications apparent and Pt Satisfied with anesthetic care
--- NOTE | 2023-05-30 14:19 | XRay Report ---
TWO VIEWS LEFT KNEE CLINICAL HISTORY: Postoperative examination. FINDINGS: AP and crosstable lateral portable views of the left knee are obtained. A left knee arthrop lasty is in near anatomic alignment. There has been undersurface remodeling of the patella. No acute fracture is seen. There are expected postoperative changes around the knee including skin clips, soft tissue edema, and subcutaneous gas. IMPRESSION: Expected postoperative changes status post left knee arthroplasty. No acute fracture is s een. ACT 112: Negative or not required by law. Electronically signed by: Bal Bran M.D. 05/30/2023 2:17 PM
[2023-05-30] MEDS: fentaNYL citrate PF 100 MCG/2 ML VIAL IV PRN ×4 (14:22→14:37)
[2023-05-30] MEDS: HYDROmorphone INJ 1 MG/ML SYRINGE IV PRN ×4 (14:52→15:07)
[2023-05-30] MEDS ORDERED: POLYETHYLENE (MIRALAX) 17 GM PACK PO PRN (16:12)
[2023-05-30] MEDS ORDERED: diphenhydrAMINE Capsule 25 MG CAP PO PRN (16:12)
[2023-05-30] MEDS ORDERED: bisacodyL 10 MG SUPP PR PRN (16:12)
[2023-05-30] MEDS ORDERED: ALBUTEROL HFA 8 GM INHALER INH PRN (16:12)
[2023-05-30] MEDS ORDERED: NALOXONE HCL 0.4 MG/1 ML VIAL/CARP IV PRN ×2 (16:12)
[2023-05-30] MEDS ORDERED: MECLIZINE HCL 25 MG TAB PO PRN (16:12)
[2023-05-30] MEDS ORDERED: TAMSULOSIN HCL 0.4 MG CAP PO PRN (16:12)
[2023-05-30] MEDS ORDERED: PROMETHAZINE HCL 25 MG TAB PO PRN (16:12)
[2023-05-30] MEDS ORDERED: FAMOTIDINE 20 MG TAB PO PRN (16:12)
[2023-05-30] MEDS ORDERED: MAGNESIUM HYDROXIDE SUSP 30 ML UDC PO PRN (16:12)
[2023-05-30] MEDS ORDERED: LINACLOTIDE 145 MCG CAPSULE PO PRN (16:12)
[2023-05-30] MEDS ORDERED: ALUMINUM/MAGNESIUM SUSP 30 ML UDC PO PRN (16:12)
[2023-05-30] MEDS ORDERED: TESTOSTERONE CYPIONATE 200 MG/ML SQ SCH (16:12)
[2023-05-30] MEDS ORDERED: METOCLOPRAMIDE HCL INJ 5 MG/ML 2 ML VIAL IV PRN (16:12)
[2023-05-30] MEDS ORDERED: HYDROmorphone INJ 0.5 MG/0.5 ML SYR IV PRN (16:12)
[2023-05-30] MEDS: Scopolamine CHECK PATCH PLACEMENT SCH ×2 (16:50→22:52)
[2023-05-30] MEDS: GABAPENTIN 600 MG TAB PO SCH ×2 (16:50→19:52)
[2023-05-30] MEDS: SODIUM CHLORIDE 0.9% 1,000 ML IV SCH (16:50)
[2023-05-30] MEDS: ACETAMINOPHEN 500 MG TAB PO SCH ×2 (16:51→22:49)
[2023-05-30] MEDS: KETOROLAC 30 MG/ML VIAL IV SCH ×2 (16:51→22:51)
[2023-05-30] MEDS: CYCLOBENZAPRINE HCL 10 MG TAB PO SCH ×2 (16:52→19:51)
[2023-05-30] MEDS: oxyCODONE HCL IR 5 MG TAB (IMMEDIATE RELEASE) PO PRN ×2 (18:14→22:48)
[2023-05-30] MEDS: MoRPHine SULFATE CR 60 MG TABCR PO SCH (18:14)
[2023-05-30] MEDS: ASCORBIC ACID 500 MG TAB PO SCH (18:14)
[2023-05-30] MEDS: ceFAZolin 2000MG 2,000 MG/15 ML SYR IV SCH (19:44)
[2023-05-30] MEDS: CALCIUM 600MG + VIT D 400 IU TAB PO SCH (19:50)
[2023-05-30] MEDS: ASPIRIN 81 MG ECTAB PO SCH (19:50)
[2023-05-30] MEDS: DOCUSATE SODIUM 100 MG CAP PO SCH (19:51)
[2023-05-30] MEDS: SENNA 8.6 MG TAB PO SCH (19:53)
[2023-05-30] MEDS ORDERED: TRANEXAMIC ACID / 0.7% NACL 1,000 MG/100 ML BAG IV SCH (20:00)
[2023-05-30] MEDS ORDERED: SENNA 8.6 MG TAB PO SCH (21:00)
[2023-05-30] MEDS ORDERED: ROSUVASTATIN CALCIUM 10 MG TAB PO SCH (21:00)
[2023-05-30] MEDS ORDERED: METOPROLOL SUCC 50MG EXT REL TAB PO SCH (21:00)
[2023-05-30] MEDS ORDERED: rOPINIRole HCL 2 MG TABLET PO SCH (21:00)
[2023-05-31] MEDS: SODIUM CHLORIDE 0.9% 1,000 ML IV SCH (01:43)
[2023-05-31] MEDS: ceFAZolin 2000MG 2,000 MG/15 ML SYR IV SCH (03:41)
[2023-05-31] MEDS: oxyCODONE HCL IR 5 MG TAB (IMMEDIATE RELEASE) PO PRN ×2 (03:49→08:18)
[2023-05-31] MEDS: KETOROLAC 30 MG/ML VIAL IV SCH ×2 (05:43→10:26)
[2023-05-31] MEDS: MoRPHine SULFATE CR 60 MG TABCR PO SCH (05:44)
[2023-05-31 07:08] LABS: Hematocrit (blood only) 35.2 % (42.0-52.0); Hemoglobin 11.8 g/dl (14.0-18.0); Mean Corpuscular Hemoglobin 27.8 pg (25.0-34.0); Mean Corpuscular Hgb Conc 33.5 g/dL (32.0-36.0); Mean Platelet Volume 10.1 fL (9.4-12.4); Platelet Count 275 K/uL (130-400); RDW Coefficient of Variation 13.6 % (11.5-14.5); Red Blood Count 4.24 M/uL (4.70-6.10); White Blood Count 15.65 K/ul (4.8-10.8)
[2023-05-31] MEDS: Scopolamine CHECK PATCH PLACEMENT SCH (07:21)
[2023-05-31] MEDS: ASCORBIC ACID 500 MG TAB PO SCH (07:22)
--- NOTE | 2023-05-31 07:25 | Surgery Progress Note ---
Date of Service May 31, 2023 Assessment & Plan (1) Status post left knee replacement: Plan: 58-year-old gentleman postop day 1 from left knee replacement doing well. Pain is controlled. He is neurologically intact. Plan: 1. DVT prophylaxis including thigh-high teds, SCDs, aspirin twice a day. 2. PT/OT. Weight-bear as tolerated left total knee protocol. 3. Pain control doing okay with current pain regimen. 4 disposition plan to discharge to home after therapy today. Admission and Anticipated Discharge Date Admission Date: May 30, 2023 Subjective 58-year-old gentlemanPostopDay #1 a left total knee replacement. He is doing well. Pretty reasonable night. Pain is controlled. No chest pain or shortness of breath. Not feeling dizzy or lightheaded. Physical Exam Physical Exam: Physical examination of the left knee reveals leg to be well aligned. Dressings clean dry and intact. I can dorsiflex and plantarflex his foot appropriately. He can do a good straight leg raise. Respiratory: normal respiratory effort, lungs clear to auscultation Cardiovascular: RRR, no murmur, no edema Gastrointestinal (Abdomen): normal bowel sounds, soft, nontender, no hepatosplenomegaly Results & Data Vital Signs (Past 12 Hours) Vital Signs Temp Pulse Resp BP Pulse Ox O2 Del Method 05/31/23 03:25 36.4 C L 60 16 122/64 93 Room Air 05/30/23 22:47 36.5 C 67 18 106/61 93 Room Air 05/30/23 19:53 Room Air 05/30/23 19:45 37 C 88 18 112/62 92 Room Air Laboratory Results Hemoglobin is 11.8. Hematocrit 35.2. Electrolytes are pending. PG Care Time/CCT Total # of Minutes Spent Total Time Spent with Patient: Total time spent is greater than 50% in coordination of care (as documented) at patient's floor/unit and/or counseling patient: Coding Level of Care Code 69250 Post Operative Follow-Up Diagnoses Status post left knee replacement Z96.652
[2023-05-31 07:36] LABS: BUN Creatinine Ratio 20.5 (10-20); Calcium 8.6 mg/dl (8.6-10.3); Creatinine Clr Calc Pharmacy 113.4 ml/min; Est GFR (African American) 110.5 ml/min; Est GFR (Non-African American) 95.4 ml/min; Potassium 4.4 mmol/L (3.5-5.1)
[2023-05-31] MEDS ORDERED: dexAMETHasone 10 MG in SYRINGE 0 ML IV SCH (08:00)
[2023-05-31] MEDS: DOCUSATE SODIUM 100 MG CAP PO SCH (08:11)
[2023-05-31] MEDS: CALCIUM 600MG + VIT D 400 IU TAB PO SCH (08:11)
[2023-05-31] MEDS: CYCLOBENZAPRINE HCL 10 MG TAB PO SCH (08:11)
[2023-05-31] MEDS: ASPIRIN 81 MG ECTAB PO SCH (08:12)
[2023-05-31] MEDS: GABAPENTIN 600 MG TAB PO SCH (08:12)
[2023-05-31] MEDS: SENNA 8.6 MG TAB PO SCH (08:13)
[2023-05-31] MEDS: ACETAMINOPHEN 500 MG TAB PO SCH (08:13)
[2023-05-31] MEDS ORDERED: PANTOprazole 40 MG TAB PO SCH (09:00)
[2023-05-31] MEDS ORDERED: amLODIPine BESYLATE 5 MG TAB PO SCH (09:00)
[2023-05-31] MEDS ORDERED: DULoxetine HCL 60 MG CAP PO SCH (09:00)
[2023-05-31] MEDS ORDERED: POTASSIUM CHLORIDE 10 MEQ TABCR PO SCH (09:00)
[2023-05-31] MEDS ORDERED: MULTIVITAMIN TAB PO SCH (09:00)
[2023-05-31] MEDS ORDERED: FENOFIBRATE NANOCRYSTALLIZED 145 MG TABLET PO SCH (09:00)
== END 2023-05-31 10:42 | disposition home or self-care (01) ==
LOC: 3E 08:42 → ASU 08:42